=== PATIENT | male | born 1950 | race Caucasian/White ===

== ENCOUNTER 2017-02-11 09:28 | Emergency (ER) | payer MEDICARE, OTHER ==
[~2017-02-11] VITALS: Ht 160 cm; Wt 70.0 kg
[2017-02-11 09:31] VITALS: Ht 160 cm; Wt 70.0 kg
[2017-02-11] MEDS ORDERED: ACETAMINOPHEN 325 MG TAB PO ONE (10:00)
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
[2017-02-11] MEDS ORDERED: CYCL5TAB PO (12:16)
[2017-02-11] MEDS ORDERED: HYDR-906 PO (12:16)
[2017-02-11] MEDS ORDERED: BACITUD TOP (12:16)
[2017-02-11] MEDS ORDERED: NAPR-260 PO (12:16)
== END 2017-02-11 12:36 | disposition home or self-care (01) ==
LOC: FTE 09:28
DX: S00.81XA Abrasion of other part of head, initial encounter (principal); S00.83XA Contusion of other part of head, initial encounter; S09.90XA Unspecified injury of head, initial encounter; V89.2XXA Person injured in unspecified motor-vehicle accident, traffic, initial encounter
CPT/HCPCS: 70450